=== PATIENT | male | born 1960 | race Caucasian/White ===

== ENCOUNTER 2016-10-16 08:00 | Emergency (ER) | payer BC ==
[2016-10-16] MEDS ORDERED: Zofran 4 MG/2 ML VIAL IV ONE (08:19)
[2016-10-16] MEDS ORDERED: MORPHINE SULFATE 4 MG INJ IV ONE (08:19)
--- NOTE | 2016-10-16 08:27 | ERPHSYRPT ---
- History of Present Illness Time Seen by Provider: 10/16/16 08:11 Source: patient Exam Limitations: no limitations Patient Subjective Stated Complaint: pt walked in resp easy, sin w/d ,chest clear abd soft, edema to left foot which he states is normal for ryan Triage Nursing Assessment: pt here for dizziness with movement, headache, and pain to left side of chest that her states is only with deep breath or cough Physician History: 56-year-old white male arrives with complaint of a headache frontal region associated with nausea woke patient up this morning at 7:00 he has had 3 episodes of this he states that they last about a minute a piece he also states that he has had pain in his left upper chest with breathing for one week He has no cough no shortness of breath he has had nausea he has no movement disorder or sensory loss no speech problems. Past medical history includes left knee pain, patient has chronic pain in his Achilles tendon Past surgical history includes a cyst removal on his left wrist Social history occasional alcohol use patient denies current tobacco use with minimal history in the past Patient states he has been having some pain in his right wrist ulnar aspect chronically for approximately 6 months worse with movement Timing/Duration: today, other (pain since 7:00 this morning intermittintly ( headache), pain left upper chest with breathing for 1 week) Severity: moderate Associated Symptoms: nausea, chest pain, headaches, other (dizziness this morning), No vomiting, No abdominal pain, No shortness of breath, No heartburn, No diaphoresis, No cough, No chills, No fever, No loss of appetite, No malaise, No rash, No syncope, No seizure, No weakness Allergies/Adverse Reactions: No Known Drug Allergies Allergy (Verified 10/16/16 08:12) Hx Tetanus, Diphtheria Vaccination/Date Given: Yes Hx Influenza Vaccination/Date Given: No Hx Pneumococcal Vaccination/Date Given: No Immunizations Up to Date: No - Review of Systems Constitutional: No Fever, No Chills Eyes: No Symptoms, No Discharge, No Eye Pain, No Eye Redness, No Itchy, No Photophobia, No Tearing, No Vision Changes, No Double Vision, No Foreign Body Sensation Ears, Nose, & Throat: No Symptoms, No Ear Pain, No Ear Discharge, No Hearing Changes, No Tinnitus, No Nose Pain, No Nose Congestion, No Nose Discharge, No Sinus Drainage, No Epistaxis, No Mouth Pain, No Mouth Swelling, No Loose Teeth, No Throat Pain, No Throat Swelling, No Hoarse, No Painful Swallowing, No Snoring , No Stridor Respiratory: Other (pain with breathing left upper chest for one week), No Cough , No Dyspnea Cardiac: Chest Pain (pain with breathing left upper chest for 1 week) Abdominal/Gastrointestinal: No Abdominal Pain, No Nausea, No Vomiting, No Diarrhea Genitourinary Symptoms: No Dysuria Musculoskeletal: Other (pain left wrist ulnar aspect anteriorly with movement for 6 months) Skin: No Rash Neurological: Dizziness, Headache, No Focal Weakness, No Gait Changes, No Paralysis, No Parasthesia, No Seizure, No Sensory Changes, No Speech Changes Psychological: No Symptoms Endocrine: No Symptoms All Other Systems: Reviewed and Negative - Past Medical History Pertinent Past Medical History: Yes Neurological History: Peripheral Neuropathy ENT History: No Pertinent History Cardiac History: No Pertinent History Respiratory History: No Pertinent History Endocrine Medical History: No Pertinent History Musculoskeletal History: No Pertinent History GI Medical History: No Pertinent History History: No Pertinent History Psycho-Social History: No Pertinent History Male Reproductive Disorders: No Pertinent History Other Medical History: LEFT KNEE PAIN, pleurisy - Past Surgical History Past Surgical History: Yes Neuro Surgical History: No Pertinent History Cardiac: No Pertinent History Respiratory: No Pertinent History Gastrointestinal: No Pertinent History Genitourinary: No Pertinent History Musculoskeletal: Other Male Surgical History: No Pertinent History Other Surgical History: CYST REMOVED FROM LEFT WRIST - Social History Smoking Status: Former smoker Exposure to second hand smoke: No Drug Use: none Patient Lives Alone: No - Nursing Vital Signs Nursing Vital Signs: Initial Vital Signs Temperature 98.2 F 10/16/16 08:02 Pulse Rate 74 10/16/16 08:02 Respiratory Rate 16 10/16/16 08:02 Blood Pressure 123/82 10/16/16 08:02 O2 Sat by Pulse Oximetry 94 L 10/16/16 08:02 Pain Scale Pain Intensity 1 - Physical Exam General Appearance: mild distress, alert Eye Exam: PERRL/EOMI, eyes nml inspection, other (fundi are unremarkable) Ears, Nose, Throat Exam: normal ENT inspection, TMs normal, pharynx normal, moist mucous membranes Neck Exam: normal inspection, non-tender, supple, full range of motion Respiratory Exam: normal breath sounds, lungs clear, No respiratory distress Cardiovascular Exam: regular rate/rhythm, normal heart sounds, normal peripheral pulses Gastrointestinal/Abdomen Exam: soft, normal bowel sounds, No tenderness, No mass Back Exam: normal inspection, normal range of motion, No CVA tenderness, No vertebral tenderness Extremity Exam: other (full range of motion all extremities Tinel sign negative Phalen sign negative pain with flexion left wrist at the base of hand ulnar aspect volar surface) Neurologic Exam: alert, oriented x 3, cooperative, materials handler II-XII nml as tested, normal mood/affect, nml cerebellar function, nml station & gait, sensation nml, other (patient alert, oriented 3, cranial nerves II through XII INTACT fisherman helper equal and symmetrical5/5, NORMAL FINGER TO NOSE, NO SENSORY DEFICITS, gcs=15), No motor deficits, No sensory deficit, No disoriented, No confusion, No agitation, No uncooperative, No intoxicated appearance, No depressed mood/affect , No motor weakness, No facial droop, No slurred speech, No aphasia, No dysarthria, No abnormal materials handler II-XII Skin Exam: normal color, warm, dry, No rash Lymphatic Exam: No adenopathy SpO2 Interpretation: normal (94%) SpO2: 94 Oxygen Delivery: Room Air - Course Nursing assessment & vital signs reviewed: Yes EKG Interpreted by Me: RATE (72 BPM), Sinus Rhythm, NORMAL AXIS, Other (EKG, sinus rhythm, 72 bpm, axis SI/QIII pattern, no acute ST or T wave changes essentially normal EKG) - Radiology Exams Chest X-ray Interpretation: Discussed w/ radiologist, Other (chest x-ray: Impression: Nonacute underinflated chest) - CT Exams Head CT Interpretation: Negative, Discussed w/radiologist Ordered Tests: Active Orders 24 hr Category Date Time Status EKG-ER Only STAT Care 10/16/16 08:19 Active IV Insertion STAT Care 10/16/16 08:19 Active CHEST 1 VIEW (PORTABLE) Stat Exams 10/16/16 08:19 Completed HEAD WITHOUT CONTRAST [CT] Stat Exams 10/16/16 08:21 Completed CBC W DIFF Stat Lab 10/16/16 08:20 Completed CMP Stat Lab 10/16/16 08:20 Completed D-DIMER QUANTITATION Stat Lab 10/16/16 08:20 Completed TROPONIN Q3H Lab 10/16/16 08:30 Completed TROPONIN Q3H Lab 10/16/16 11:30 Ordered TROPONIN Q3H Lab 10/16/16 14:30 Ordered TROPONIN Q3H Lab 10/16/16 17:30 Ordered TROPONIN Q3H Lab 10/16/16 20:30 Ordered Medication Summary Discontinued Medications Generic Name Dose Route Start Last Admin Trade Name Karolina PRN Reason Stop Dose Admin Aspirin 324 mg 10/16/16 09:07 10/16/16 09:11 Baby Aspirin 81 Mg Chew PO 10/16/16 09:08 324 mg STAT ONE Administration Aspirin Confirm 10/16/16 09:10 Baby Aspirin 81 Mg Chew Administered 10/16/16 09:11 Dose 324 mg .ROUTE .STK-MED ONE Morphine Sulfate 4 mg 10/16/16 08:19 10/16/16 08:52 Morphine Sulfate 4 Mg Inj IV 10/16/16 08:20 4 mg STAT ONE Administration Morphine Sulfate Confirm 10/16/16 08:33 Morphine Sulfate 4 Mg Inj Administered 10/16/16 08:34 Dose 4 mg .ROUTE .STK-MED ONE Ondansetron HCl 4 mg 10/16/16 08:19 10/16/16 08:53 Zofran 4 Mg/2 Ml Vial IV 10/16/16 08:20 4 mg STAT ONE Administration Ondansetron HCl Confirm 10/16/16 08:33 Zofran 4 Mg/2 Ml Vial Administered 10/16/16 08:34 Dose 4 mg .ROUTE .STK-MED ONE Lab/Rad Data: Laboratory Result Diagrams 10/16/16 08:20 10/16/16 08:20 Laboratory Results 10/16/16 10/16/16 10/16/16 Range/Units 08:30 08:20 08:20 WBC (4.0-10.5) K/mm3 RBC (4.1-5.6) M/mm3 Hgb (12.5-18.0) gm/dl Hct (42-50) % MCV (78-100) fl MCH (26-32) pg MCHC (32-36) g/dl RDW (11.5-14.0) % Plt Count (150-450) K/mm3 MPV (6-9.5) fl Gran % (36.0-66.0) % Lymphocytes % (24.0-44.0) % Monocytes % (0.0-12.0) % Eosinophils % (0.00-5.0) % Basophils % (0.0-0.4) % Basophils # (0-0.4) D-Dimer 411 (0-500) ng/mL Sodium 139 (136-145) mEq/L Potassium 4.2 (3.5-5.1) mEq/L Chloride 104 (98-107) mEq/L Carbon Dioxide 27.1 (21-32) mEq/L Anion Gap 12.2 (5-15) MEQ/L BUN 20 (9-20) mg/dL Creatinine 1.28 (0.55-1.30) mg/dl Estimated GFR > 60 ML/MIN Glucose 117 H (70-110) MG/DL Calcium 9.4 (8.5-10.1) mg/dL Total Bilirubin 0.40 (0.2-1.0) mg/dL AST 37 (15-37) U/L ALT 53 (12-78) U/L Alkaline Phosphatase 58 (46-116) U/L Troponin I < 0.017 (0.000-0.056) ng/ml Serum Total Protein 7.7 (6.4-8.2) gm/dL Albumin 3.6 (3.4-5.0) g/dL 10/16/16 Range/Units 08:20 WBC 7.7 (4.0-10.5) K/mm3 RBC 4.64 (4.1-5.6) M/mm3 Hgb 14.5 (12.5-18.0) gm/dl Hct 43.1 (42-50) % MCV 92.9 (78-100) fl MCH 31.3 (26-32) pg MCHC 33.6 (32-36) g/dl RDW 14.0 (11.5-14.0) % Plt Count 213 (150-450) K/mm3 MPV 10.1 H (6-9.5) fl Gran % 63.1 (36.0-66.0) % Lymphocytes % 23.3 L (24.0-44.0) % Monocytes % 10.8 (0.0-12.0) % Eosinophils % 2.3 (0.00-5.0) % Basophils % 0.5 (0.0-0.4) % Basophils # 0.04 (0-0.4) D-Dimer (0-500) ng/mL Sodium (136-145) mEq/L Potassium (3.5-5.1) mEq/L Chloride (98-107) mEq/L Carbon Dioxide (21-32) mEq/L Anion Gap (5-15) MEQ/L BUN (9-20) mg/dL Creatinine (0.55-1.30) mg/dl Estimated GFR ML/MIN Glucose (70-110) MG/DL Calcium (8.5-10.1) mg/dL Total Bilirubin (0.2-1.0) mg/dL AST (15-37) U/L ALT (12-78) U/L Alkaline Phosphatase (46-116) U/L Troponin I (0.000-0.056) ng/ml Serum Total Protein (6.4-8.2) gm/dL Albumin (3.4-5.0) g/dL - Progress Progress: improved Progress Note: 10/16/16 10:00 This is a 56-year-old white male he has been complaining of pain in the left upper chest worse with breathing symptoms for one week. He states this morning he awoke with complaint of frontal headache, nausea, dizziness this lasted approximately 1 minute and was recurring Patient arrives in the emergency room he is given morphine and Zofran for pain Head CT chest x-ray EKG all normal troponin within normal limits d-dimer within normal limits CBC chemistry essentially normal Patient with normal neurologic examination and essentially normal physical examination. Patient is feeling better after receiving morphine and Zofran he was also given aspirin 325 mg orally. Case is discussed with Dr. Kruse Will discharge patient diagnosis headache, dizziness, noncardiac chest pain. Will release patient will give patient a prescription for Antivert 25 mg orally 3 times a day as needed for dizziness. Patient to continue Tylenol every 4 hours or ibuprofen every 6 hours. As needed for pain. Patient to begin aspirin 162 mg orally daily. He is return home rest plenty of fluids, follow-up with Dr. Kruse, call today for appointment. He is return for acute distress or for severe symptoms.l - Departure Time of Disposition: 10:03 Departure Disposition: Home Clinical Impression: Dizziness, Non-cardiac chest pain Headache Qualifiers: Headache type: unspecified Headache chronicity pattern: acute headache Intractability: not intractable Qualified Code(s): R51 - Headache Condition: Fair Critical Care Time: No Referrals: MARY KRUSE [Primary Care Provider] - Instructions: Vertigo Additional Instructions: Return home. Plenty of fluids. Tylenol every 4 hours or ibuprofen every 6 hours as needed for pain. Antivert 25 mg orally 3 times a day as needed for dizziness. Aspirin 162 mg orally daily. Follow-up with Dr. Kruse, at his office at 1:30 pm tomorrow. Return for acute distress or for severe symptoms. Prescriptions: Meclizine HCl 25 mg [Antivert 25 mg] 25 mg PO TID PRN #20 tablet
[2016-10-16] MEDS ORDERED: MORPHINE SULFATE 4 MG INJ ONE (08:33)
[2016-10-16] MEDS ORDERED: Zofran 4 MG/2 ML VIAL ONE (08:33)
--- NOTE | 2016-10-16 08:55 | XRAY ---
Indication: Headache and dizziness. Multiple contiguous axial images obtained through the head without contrast. Comparison: None Normal appearing brain parenchyma, ventricles, and bony calvarium. Visualized paranasal sinuses and mastoid air cells are pneumatized and clear. Impression: Normal CT head without contrast exam. CT DI 69.11
--- NOTE | 2016-10-16 08:58 | XRAY ---
Indication: Pain with breathing. Comparison: April 12, 2014. Portable apical lordotic chest underinflated today and remains clear. Heart is not enlarged. Bony thorax intact again with mild degenerative changes. Impression: Nonacute underinflated chest.
[2016-10-16 08:59] LABS: BASOPHIL % 0.5 % (0.0-0.4); Eosinophil % 2.3 % (0.00-5.0); Granulocytes % 63.1 % (36.0-66.0); Lymphocytes % 23.3 % (24.0-44.0); Mean Cell Volume 92.9 fl (78-100); Mean Corpuscular Hemoglobin 31.3 pg (26-32); Mean Platelet Volume 10.1 fl (6-9.5); Monocytes % 10.8 % (0.0-12.0); Platelet Count 213 K/mm3 (150-450); Red Blood Count 4.64 M/mm3 (4.1-5.6); White Blood Count 7.7 K/mm3 (4.0-10.5)
[2016-10-16] MEDS ORDERED: BABY ASPIRIN 81 MG CHEW PO ONE (09:07)
[2016-10-16] MEDS ORDERED: BABY ASPIRIN 81 MG CHEW ONE (09:10)
[2016-10-16 09:14] LABS: ALBUMIN 3.6 g/dL (3.4-5.0); ALKALINE PHOSPHATASE 58 U/L (46-116); ANION GAP 12.2 MEQ/L (5-15); BLOOD UREA NITROGEN 20 mg/dL (9-20); CHLORIDE 104 mEq/L (98-107); Carbon Dioxide 27.1 mEq/L (21-32); Glucose 117 MG/DL (70-110); Potassium 4.2 mEq/L (3.5-5.1); SGOT/AST 37 U/L (15-37); SGPT/ALT 53 U/L (12-78); SODIUM 139 mEq/L (136-145); Total Protein 7.7 gm/dL (6.4-8.2)
[2016-10-16 10:49] VITALS: BP 160/70; PULSE 78; O2SAT 98
== END 2016-10-16 10:26 | disposition home or self-care (01) ==
LOC: ED 08:00
DX: R51 Headache (principal); R42 Dizziness and giddiness; R07.89 Other chest pain; R60.9 Edema, unspecified; R11.0 Nausea; M25.531 Pain in right wrist
CPT/HCPCS: 36000; 36415; 70450; 71010; 80053; 84484; 85025; 85379; 93005; 96360; 96374; 96375; 99284; J2270; J2405; A9270-GY

== ENCOUNTER 2021-05-03 20:04 | Emergency (ER) | payer BC, OTHER ==
[2021-05-03] MEDS ORDERED: Sodium Chloride 0.9% 1000 ML 1,000 ML IV STA (21:27)
[2021-05-03] MEDS ORDERED: TYLENOL 325 MG PO STA (21:27)
[2021-05-03] MEDS ORDERED: TORAdol 30 mg Injection IV ONE (21:29)
[2021-05-03] MEDS ORDERED: Sodium Chloride 0.9% 1000 ML 1,000 ML ONE (21:30)
[2021-05-03] MEDS ORDERED: TORAdol 30 mg Injection ONE (21:30)
[2021-05-03] MEDS ORDERED: TYLENOL 325 MG ONE (21:30)
[2021-05-03 21:39] LABS: Absolute Neutrophil Ct (ANC) 8.43 (1.4-6.9); Basophil (Absolute #) 0.02 (0-0.4); Eosinophil % 0.4 % (0.00-5.0); Eosinophil (Absolute #) 0.04 (0-0.5); Hematocrit 46.4 % (42-50); Hemoglobin 15.6 gm/dl (12.5-18.0); Lymphocyte (Absolute #) 0.46 (1.0-4.6); Lymphocytes % 4.9 % (24.0-44.0); Mean Cell Volume 90.8 fl (78-100); Mean Corpuscular Hemoglobin 30.5 pg (26-32); Mean Corpuscular Hgb Concent. 33.6 g/dl (32-36); Mean Platelet Volume 10.5 fl (7.5-11.0); Monocytes % 5.3 % (0.0-12.0); Neutrophil % 89.2 % (36.0-66.0); Platelet Count 214 K/mm3 (150-450); Red Blood Count 5.11 M/mm3 (4.1-5.6); Red Cell Distribution Width 13.4 % (11.5-14.0); White Blood Count 9.5 K/mm3 (4.0-10.5)
[2021-05-03 21:50] LABS: ALBUMIN 4.1 g/dL (3.5-5.0); ALKALINE PHOSPHATASE 58 U/L (38-126); ANION GAP 15.8 MEQ/L (5-15); BLOOD UREA NITROGEN 20 mg/dL (9-20); CHLORIDE 102 mmol/L (98-107); Calcium 9.1 mg/dL (8.4-10.2); Carbon Dioxide 22 mmol/L (22-30); Creatinine 1 1.01 mg/dL (0.66-1.25); EST GLOMERULAR FILTRATION RATE > 60.0 ML/MIN; Glucose 123 mg/dL (74-106); Potassium 4.2 mmol/L (3.5-5.1); SGOT/AST 38 U/L (17-59); SGPT/ALT 30 U/L (0-50); SODIUM 136 mmol/L (137-145); Total Protein 7.6 g/dL (6.3-8.2)
[2021-05-03 22:06] LABS: Appearance CLEAR (CLEAR); Bilirubin NEGATIVE (NEGATIVE); Blood SMALL Ery/ul (0-5); Glucose NEGATIVE (NEGATIVE); Ketones NEGATIVE (NEGATIVE); Leukocyte Esterase NEGATIVE (NEGATIVE); Mucus SLIGHT /HPF (NEGATIVE); Nitrite NEGATIVE (NEGATIVE); Protein,Urine Dip NEGATIVE (Negative); RBC 0-2 /HPF (0-2); Specific Gravity 1.027 (1.005-1.025); Urobilinogen 2 mg/dL (0-1); WBC 0-2 /HPF (0-5)
[2021-05-03 22:15] LABS: INFLUENZA A NEGATIVE (NEGATIVE); INFLUENZA B NEGATIVE (NEGATIVE)
[2021-05-03 22:16] LABS: COVID AG -BINAX NOW RAPID TEST NEGATIVE (NEGATIVE)
[2021-05-03] MEDS ORDERED: Compazine 10 MG/2 ML IV ONE (22:48)
[2021-05-03] MEDS ORDERED: Compazine 10 MG/2 ML ONE (22:50)
[2021-05-03 22:54] LABS: Slide Review 1 YES
--- NOTE | 2021-05-03 22:54 | ERPHSYRPT ---
- History of Present Illness Time Seen by Provider: 05/03/21 20:59 Source: patient Exam Limitations: no limitations Patient Subjective Stated Complaint: pt states "The fever and body aches began today." Triage Nursing Assessment: pt came into the er via wheelchair; pt is axo x4; c/o fever; pt states 7/10 generalized pain; pt states generalized body aches; temp of 100.2 oral; mucus membranes pink and moist; clear lung sounds in all lobes; c/o diarrhea in the a.m; pt denies diarrhea since this morning; pt denies N/V; active bowel sounds in all quads; pt c/o chills; pt states he took tylenol at 1430 and excedrin at 1930; hypertensive; pt states that temp at home was 102.4 Physician History: Patient is a 61-year-old male presents to emergency department for evaluation of fever body aches and headache. Symptoms started today. Body aches rated 7 out of 10. No trauma. Currently afebrile. No neck pain. No photophobia. No meningeal signs. Symptoms are mild to moderate in intensity. No specific worsening improving factors. Patient voices no other complaints or concerns at this time. Patient states he had a negative COVID test 2 weeks ago. Timing/Duration: today Severity: moderate Modifying Factors: Improves With: nothing Associated Symptoms: denies symptoms, No fever, No syncope, No seizure, No wea kness Allergies/Adverse Reactions: No Known Drug Allergies Allergy (Verified 05/03/21 20:54) Home Medications: No Reportable Medications [No Reported Medications] 05/03/21 [History] Hx Tetanus, Diphtheria Vaccination/Date Given: No Hx Influenza Vaccination/Date Given: No Hx Pneumococcal Vaccination/Date Given: No Travel Risk - International Travel Have you traveled outside of the country in past 3 weeks: No - Coronavirus Screening Are you exhibiting any of the following symptoms?: Yes Symptoms: Fever, Vomiting/Diarrhea, Headaches/Body Aches/Fatigue Close contact with a COVID-19 positive Pt in past 14-21 Days: No - Vaccine Status Have you recieved a Covid-19 vaccination: Yes Medical Economics Consultant: Moderna - Vaccination Dates Date of 2cond Vaccination (if applicable): 07/07 - Review of Systems Constitutional: No Symptoms, No Fever, No Chills Eyes: No Symptoms Ears, Nose, & Throat: No Symptoms Respiratory: No Symptoms, No Cough, No Dyspnea Cardiac: No Symptoms, No Chest Pain, No Edema, No Syncope Abdominal/Gastrointestinal: No Symptoms, No Abdominal Pain, No Nausea, No Vomiting, No Diarrhea Genitourinary Symptoms: No Symptoms, No Dysuria Musculoskeletal: No Symptoms, No Back Pain, No Neck Pain Skin: No Symptoms, No Rash Neurological: No Symptoms, No Dizziness, No Focal Weakness, No Sensory Changes Psychological: No Symptoms Endocrine: No Symptoms Hematologic/Lymphatic: No Symptoms Immunological/Allergic: No Symptoms All Other Systems: Reviewed and Negative - Past Medical History Pertinent Past Medical History: Yes Neurological History: Peripheral Neuropathy ENT History: No Pertinent History Cardiac History: No Pertinent History Respiratory History: No Pertinent History Endocrine Medical History: No Pertinent History Musculoskeletal History: No Pertinent History GI Medical History: No Pertinent History History: No Pertinent History Psycho-Social History: No Pertinent History Male Reproductive Disorders: No Pertinent History Other Medical History: LEFT KNEE PAIN, pleurisy - Past Surgical History Past Surgical History: Yes Neuro Surgical History: No Pertinent History Cardiac: No Pertinent History Respiratory: No Pertinent History Gastrointestinal: No Pertinent History Genitourinary: No Pertinent History Musculoskeletal: Other Male Surgical History: No Pertinent History Other Surgical History: CYST REMOVED FROM LEFT WRIST - Social History Smoking Status: Former smoker Exposure to second hand smoke: No Drug Use: none Patient Lives Alone: No - Nursing Vital Signs Nursing Vital Signs: Initial Vital Signs Temperature 100.2 F 05/03/21 20:55 Pulse Rate 96 H 05/03/21 20:55 Respiratory Rate 18 05/03/21 20:55 Blood Pressure 165/97 05/03/21 20:55 O2 Sat by Pulse Oximetry 95 05/03/21 20:55 Pain Scale Pain Intensity 5 - Physical Exam General Appearance: no apparent distress, alert Eye Exam: PERRL/EOMI, eyes nml inspection Ears, Nose, Throat Exam: normal ENT inspection, TMs normal, pharynx normal, moist mucous membranes Neck Exam: normal inspection, non-tender, supple, full range of motion Respiratory Exam: normal breath sounds, lungs clear, airway intact, No respiratory distress Cardiovascular Exam: regular rate/rhythm, normal heart sounds, normal peripheral pulses Gastrointestinal/Abdomen Exam: soft, normal bowel sounds, No tenderness, No mass Back Exam: normal inspection, normal range of motion, No CVA tenderness, No vertebral tenderness Extremity Exam: normal inspection, normal range of motion, pelvis stable Neurologic Exam: alert, oriented x 3, cooperative, normal mood/affect, sensation nml, No motor deficits Skin Exam: normal color, warm, dry, No rash Lymphatic Exam: No adenopathy SpO2 Interpretation: normal SpO2: 94 O2 Delivery: Room Air - Course Nursing assessment & vital signs reviewed: Yes Ordered Tests: Active Orders 24 hr Category Date Time Status IV Insertion STAT Care 05/03/21 21:27 Active Pulse Oximetry (ED) STAT Care 05/03/21 21:27 Active BLOOD CULTURE Stat Lab 05/03/21 21:50 Received CBC W DIFF Stat Lab 05/03/21 21:35 Completed CMP Stat Lab 05/03/21 21:35 Completed COVID AG-BINAX NOW RAPID TEST Stat Lab 05/03/21 21:50 Completed INFLUENZA A+B SANTHOSH Stat Lab 05/03/21 21:50 Completed UA W/RFX UR CULTURE Stat Lab 05/03/21 21:35 Completed Medication Summary Generic Name Dose Route Start Last Admin Trade Name Freq PRN Reason Stop Dose Admin Prochlorperazine Edisylate 10 mg 05/03/21 22:48 Prochlorperazine Edisylate 10 Mg/2 Ml Vial IV 05/03/21 22:49 STAT ONE Discontinued Medications Generic Name Dose Route Start Last Admin Trade Name Freq PRN Reason Stop Dose Admin Acetaminophen 975 mg 05/03/21 21:27 05/03/21 21:31 Acetaminophen 325 Mg Tablet PO 05/03/21 21:28 975 mg STAT STA Administration Acetaminophen Confirm 05/03/21 21:30 Acetaminophen 325 Mg Tablet Administered 05/03/21 21:31 Dose 975 mg .ROUTE .STK-MED ONE Sodium Chloride 1,000 mls @ 999 mls/hr 05/03/21 21:27 05/03/21 21:31 Sodium Chloride 0.9% 1000 Ml IV 05/03/21 22:27 999 mls/hr .Q1H1M STA Administration Sodium Chloride Confirm 05/03/21 21:30 Sodium Chloride 0.9% 1000 Ml Administered 05/03/21 21:31 Dose 1,000 mls @ ud .ROUTE .STK-MED ONE Ketorolac Tromethamine 30 mg 05/03/21 21:29 05/03/21 21:31 Ketorolac Tromethamine 30 Mg/Ml Inj IV 05/03/21 21:30 30 mg STAT ONE Administration Ketorolac Tromethamine Confirm 05/03/21 21:30 Ketorolac Tromethamine 30 Mg/Ml Inj Administered 05/03/21 21:31 Dose 30 mg .ROUTE .STK-MED ONE Lab/Rad Data: Laboratory Result Diagrams 05/03/21 21:35 05/03/21 21:35 Laboratory Results 05/03/21 05/03/21 05/03/21 Range/Units 21:50 21:50 21:35 WBC (4.0-10.5) K/mm3 RBC (4.1-5.6) M/mm3 Hgb (12.5-18.0) gm/dl Hct (42-50) % MCV (78-100) fl MCH (26-32) pg MCHC (32-36) g/dl RDW (11.5-14.0) % Plt Count (150-450) K/mm3 MPV (7.5-11.0) fl Gran % (36.0-66.0) % Eos # (Auto) (0-0.5) Absolute Lymphs (auto) (1.0-4.6) Absolute Monos (auto) (0.0-1.3) Lymphocytes % (24.0-44.0) % Monocytes % (0.0-12.0) % Eosinophils % (0.00-5.0) % Basophils % (0.0-0.4) % Absolute Granulocytes (1.4-6.9) Basophils # (0-0.4) Sodium (137-145) mmol/L Potassium (3.5-5.1) mmol/L Chloride (98-107) mmol/L Carbon Dioxide (22-30) mmol/L Anion Gap (5-15) MEQ/L BUN (9-20) mg/dL Creatinine (0.66-1.25) mg/dL Estimated GFR ML/MIN Glucose (74-106) mg/dL Calcium (8.4-10.2) mg/dL Total Bilirubin (0.2-1.3) mg/dL AST (17-59) U/L ALT (0-50) U/L Alkaline Phosphatase (38-126) U/L Serum Total Protein (6.3-8.2) g/dL Albumin (3.5-5.0) g/dL Urine Color YELLOW (YELLOW) Urine Appearance CLEAR (CLEAR) Urine pH 5.0 (5-6) Ur Specific [place] 1.027 (1.005-1.025) Urine Protein NEGATIVE (Negative) Urine Ketones NEGATIVE (NEGATIVE) Urine Blood SMALL (0-5) Pradip/ul Urine Nitrite NEGATIVE (NEGATIVE) Urine Bilirubin NEGATIVE (NEGATIVE) Urine Urobilinogen 2 (0-1) mg/dL Ur Leukocyte Esterase NEGATIVE (NEGATIVE) Urine WBC (Auto) 0-2 (0-5) /HPF Urine RBC (Auto) 0-2 (0-2) /HPF U Epithel Cells (Auto) NONE (FEW) /HPF Urine Bacteria (Auto) NONE (NEGATIVE) /HPF Urine Mucus (Auto) SLIGHT (NEGATIVE) /HPF Urine Culture Reflexed NO (NO) Urine Glucose NEGATIVE (NEGATIVE) mg/dL Influenza Type A Ag NEGATIVE (NEGATIVE) Influenza Type B Ag NEGATIVE (NEGATIVE) SARS-CoV-2 Ag (Rapid) NEGATIVE (NEGATIVE) 05/03/21 05/03/21 Range/Units 21:35 21:35 WBC 9.5 (4.0-10.5) K/mm3 RBC 5.11 (4.1-5.6) M/mm3 Hgb 15.6 (12.5-18.0) gm/dl Hct 46.4 (42-50) % MCV 90.8 (78-100) fl MCH 30.5 (26-32) pg MCHC 33.6 (32-36) g/dl RDW 13.4 (11.5-14.0) % Plt Count 214 (150-450) K/mm3 MPV 10.5 (7.5-11.0) fl Gran % 89.2 H (36.0-66.0) % Eos # (Auto) 0.04 (0-0.5) Absolute Lymphs (auto) 0.46 L (1.0-4.6) Absolute Monos (auto) 0.50 (0.0-1.3) Lymphocytes % 4.9 L (24.0-44.0) % Monocytes % 5.3 (0.0-12.0) % Eosinophils % 0.4 (0.00-5.0) % Basophils % 0.2 (0.0-0.4) % Absolute Granulocytes 8.43 H (1.4-6.9) Basophils # 0.02 (0-0.4) Sodium 136 L (137-145) mmol/L Potassium 4.2 (3.5-5.1) mmol/L Chloride 102 (98-107) mmol/L Carbon Dioxide 22 (22-30) mmol/L Anion Gap 15.8 H (5-15) MEQ/L BUN 20 (9-20) mg/dL Creatinine 1.01 (0.66-1.25) mg/dL Estimated GFR > 60.0 ML/MIN Glucose 123 H (74-106) mg/dL Calcium 9.1 (8.4-10.2) mg/dL Total Bilirubin 0.70 (0.2-1.3) mg/dL AST 38 (17-59) U/L ALT 30 (0-50) U/L Alkaline Phosphatase 58 (38-126) U/L Serum Total Protein 7.6 (6.3-8.2) g/dL Albumin 4.1 (3.5-5.0) g/dL Urine Color (YELLOW) Urine Appearance (CLEAR) Urine pH (5-6) Ur Specific [place] (1.005-1.025) Urine Protein (Negative) Urine Ketones (NEGATIVE) Urine Blood (0-5) Pradip/ul Urine Nitrite (NEGATIVE) Urine Bilirubin (NEGATIVE) Urine Urobilinogen (0-1) mg/dL Ur Leukocyte Esterase (NEGATIVE) Urine WBC (Auto) (0-5) /HPF Urine RBC (Auto) (0-2) /HPF U Epithel Cells (Auto) (FEW) /HPF Urine Bacteria (Auto) (NEGATIVE) /HPF Urine Mucus (Auto) (NEGATIVE) /HPF Urine Culture Reflexed (NO) Urine Glucose (NEGATIVE) mg/dL Influenza Type A Ag (NEGATIVE) Influenza Type B Ag (NEGATIVE) SARS-CoV-2 Ag (Rapid) (NEGATIVE) - Progress Progress: improved Progress Note: Patient reassessed. He feels much better. Headache essentially resolved. Body aches improved. Patient states he is ready for discharge. Laboratory work-up essentially nonremarkable. UA negative for UTI. Covid influenza both negative. Patient presents with a viral syndrome. Symptomatic care via [id number] medications as needed. Will discharge home. Patient agrees to follow-up with his primary care doctor within 48 hours for reevaluation. Portions of this note were created with voice recognition technology. There may be grammatical, spelling, punctuation or sound alike errors 05/03/21 23:02 Counseled pt/family regarding: diagnosis, need for follow-up, rad results - Departure Departure Disposition: Home Clinical Impression: Viral syndrome, Myalgia, Headache, Microscopic hematuria Condition: Stable Critical Care Time: No Referrals: MARY ZIMMERMAN [Primary Care Provider] - Follow up/PCP as directed Additional Instructions: Discharge/Care Plan LOKESH RYAN was seen on 05/03/21 in the Emergency Room. The patient was counseled regarding Diagnosis,Lab results, Imaging studies, need for follow up and when to return to the Emergency Room. Prescriptions given: Discharge Note I have spoken with the patient and/or caregivers. I have explained the patient's condition, diagnosis and treatment plan based on the information available to me at this time. I have answered the patient's and/or caregiver's questions and addressed any concerns. The patient and/or caregivers have as good understanding of the patient's diagnosis, condition and treatment plan as can be expected at this point. The vital signs have been stable. The patient's condition is stable and appropriate for discharge from the emergency department. The patient will pursue further outpatient evaluation with the primary care physician or other designated or consulting physician as outlined in the discharge instructions. The patient and/or caregivers are agreeable to this plan of care and follow-up instructions have been explained in detail. The patient and/or caregivers have received these instruction. The patient/and or caregivers are aware that any significant change in condition or worsening of symptoms should prompt an immediate return to this or the closest emergency department or call 911.
[2021-05-03 23:08] VITALS: BP 117/77; PULSE 70; O2SAT 95
== END 2021-05-03 23:14 | disposition home or self-care (01) ==
LOC: ED 20:04
DX: B34.9 Viral infection, unspecified (principal); M79.10 Myalgia, unspecified site; R51.9 Headache, unspecified; R31.29 Other microscopic hematuria; R50.9 Fever, unspecified
CPT/HCPCS: 36000; 36415; 80053; 81001; 85025; 87040; 87400; 94760; 96360; 96374; 96375; 99000; 99284; J1885; A9270-GY

== ENCOUNTER 2021-12-02 15:48 | Emergency (ER) | payer BC ==
--- NOTE | 2021-12-02 15:54 | ERPHSYRPT ---
- History of Present Illness Time Seen by Provider: 12/02/21 15:54 Source: patient Exam Limitations: no limitations Physician History: This is an obese 61-year-old white male who was referred to us by [facility] for further evaluation and management of his left side abdominal pain. His pain began last evening at 10 PM. He has had no vomiting and no diarrhea symptoms. Patient denies shortness of breath and he denies chest pain. Patient has no history abdominal surgeries. Patient has no history of diverticulitis. His has irritable bowel syndrome and she did provide him with some dicyclomine which seemed to intermittently help. Patient's pain is in the left lower quadrant and is very sharp and localized. Timing/Duration: yesterday Severity: moderate Associated Symptoms: abdominal pain, No nausea, No vomiting, No shortness of breath, No chest pain, No fever Allergies/Adverse Reactions: No Known Drug Allergies Allergy (Verified 12/02/21 16:02) Hx Tetanus, Diphtheria Vaccination/Date Given: No Hx Influenza Vaccination/Date Given: No Hx Pneumococcal Vaccination/Date Given: No Travel Risk - International Travel Have you traveled outside of the country in past 3 weeks: No - Coronavirus Screening Are you exhibiting any of the following symptoms?: No Close contact with a COVID-19 positive Pt in past 14-21 Days: No - Vaccine Status Have you recieved a Covid-19 vaccination: Yes Enterprise Resource Planning Consultant: Moderna - Vaccination Dates Date of 2cond Vaccination (if applicable): 07/07 - Review of Systems Constitutional: No Symptoms Eyes: No Symptoms Ears, Nose, & Throat: No Symptoms Respiratory: No Symptoms Cardiac: No Symptoms Abdominal/Gastrointestinal: Abdominal Pain, No Nausea, No Vomiting, No Diarrhea, No Constipation Genitourinary Symptoms: No Symptoms Musculoskeletal: No Symptoms Skin: No Symptoms Neurological: No Symptoms Psychological: No Symptoms Endocrine: No Symptoms Hematologic/Lymphatic: No Symptoms Immunological/Allergic: No Symptoms All Other Systems: Reviewed and Negative - Past Medical History Pertinent Past Medical History: Yes Neurological History: Peripheral Neuropathy ENT History: No Pertinent History Cardiac History: No Pertinent History Respiratory History: No Pertinent History Endocrine Medical History: No Pertinent History Musculoskeletal History: No Pertinent History GI Medical History: No Pertinent History History: No Pertinent History Psycho-Social History: No Pertinent History Male Reproductive Disorders: No Pertinent History Other Medical History: LEFT KNEE PAIN, pleurisy - Past Surgical History Past Surgical History: Yes Neuro Surgical History: No Pertinent History Cardiac: No Pertinent History Respiratory: No Pertinent History Gastrointestinal: No Pertinent History Genitourinary: No Pertinent History Musculoskeletal: Other Male Surgical History: No Pertinent History Other Surgical History: CYST REMOVED FROM LEFT WRIST - Social History Smoking Status: Former smoker Exposure to second hand smoke: No Drug Use: none Patient Lives Alone: No - Nursing Vital Signs Nursing Vital Signs: Initial Vital Signs Temperature 98.1 F 12/02/21 15:58 Pulse Rate 70 12/02/21 15:58 Respiratory Rate 18 12/02/21 15:58 Blood Pressure 148/78 12/02/21 15:58 O2 Sat by Pulse Oximetry 97 12/02/21 15:58 Pain Scale Pain Intensity 6 - Physical Exam General Appearance: no apparent distress, alert, anxiety, obese Eye Exam: PERRL/EOMI, eyes nml inspection Ears, Nose, Throat Exam: normal ENT inspection, moist mucous membranes Neck Exam: normal inspection, non-tender, supple, full range of motion Respiratory Exam: normal breath sounds, lungs clear, airway intact, No chest tenderness, No respiratory distress Cardiovascular Exam: regular rate/rhythm, normal heart sounds, normal peripheral pulses Gastrointestinal/Abdomen Exam: soft, normal bowel sounds, tenderness (Left mid to lower abdomen), guarding (Left mid to lower abdomen with palpation), No rebound Rectal Exam: not done Back Exam: normal inspection, normal range of motion, No CVA tenderness, No vertebral tenderness Extremity Exam: normal inspection, normal range of motion, pelvis stable Neurologic Exam: alert, oriented x 3, cooperative, patient financial rep II-XII nml as tested, no rmal mood/affect, nml cerebellar function, nml station & gait, sensation nml Skin Exam: normal color, warm, dry Lymphatic Exam: No adenopathy SpO2 Interpretation: normal - Course Nursing assessment & vital signs reviewed: Yes Ordered Tests: Active Orders 24 hr Category Date Time Status IV Insertion STAT Care 12/02/21 16:32 Completed ABDOMEN AND PELVIS W/0 CONTRAS [CT] Stat Exams 12/02/21 17:31 Completed AMYLASE Stat Lab 12/02/21 16:40 Completed CBC W DIFF Stat Lab 12/02/21 16:40 Completed CMP Stat Lab 12/02/21 16:40 Completed LIPASE Stat Lab 12/02/21 16:40 Completed Lactic Acid Stat Lab 12/02/21 16:32 Completed UA W/RFX CULTURE Stat Lab 12/02/21 Completed Medication Summary Discontinued Medications Generic Name Dose Route Start Last Admin Trade Name Karolina PRLisa Reason Stop Dose Admin Hydromorphone HCl 1 mg 12/02/21 16:32 12/02/21 17:03 Hydromorphone 1 Mg/1ml Inj 1 Mg/Ml Syringe IV 12/02/21 16:33 1 mg STAT ONE Administration Hydromorphone HCl Confirm 12/02/21 17:02 Hydromorphone 1 Mg/1ml Inj 1 Mg/Ml Syringe Administered 12/02/21 17:03 Dose 1 mg .ROUTE .STK-MED ONE Sodium Chloride 1,000 mls @ 999 mls/hr 12/02/21 16:32 12/02/21 18:11 Sodium Chloride 0.9% 1000 Ml IV 12/02/21 17:32 Infused .Q1H1M STA Infusion Sodium Chloride Confirm 12/02/21 17:02 Sodium Chloride 0.9% 1000 Ml Administered 12/02/21 17:03 Dose 1,000 mls @ ud .ROUTE .STK-MED ONE Ketorolac Tromethamine 30 mg 12/02/21 18:22 Ketorolac Tromethamine 30 Mg/Ml Inj IV 12/02/21 18:23 STAT ONE Ondansetron HCl 4 mg 12/02/21 16:32 12/02/21 17:03 Ondansetron Hcl 4 Mg/2 Ml Vial IV 12/02/21 16:33 4 mg STAT ONE Administration Ondansetron HCl Confirm 12/02/21 17:02 Ondansetron Hcl 4 Mg/2 Ml Vial Administered 12/02/21 17:03 Dose 4 mg .ROUTE .STK-MED ONE Tamsulosin HCl 0.4 mg 12/02/21 18:22 Tamsulosin Hcl 0.4 Mg Cap PO 12/02/21 18:23 STAT ONE Lab/Rad Data: Laboratory Result Diagrams 12/02/21 16:40 12/02/21 16:40 Laboratory Results 12/02/21 12/02/21 12/02/21 Range/Units Unknown 16:40 16:40 WBC 10.1 (4.0-10.5) x10^3/uL RBC 4.71 (4.1-5.6) x10^6/uL Hgb 14.4 (12.5-18.0) g/dL Hct 43.3 (42-50) % MCV 91.9 (78-100) fL MCH 30.6 (26-32) pg MCHC 33.3 (32-36) g/dL RDW 13.1 (11.5-14.0) % Plt Count 230 (150-450) x10^3/uL MPV 9.8 (7.5-11.0) fL Gran % 69.6 H (36.0-66.0) % Immature Gran % (Auto) 0.5 H (0.00-0.4) % Nucleat RBC Rel Count 0.0 (0.00-0.1) % Eos # (Auto) 0.10 (0-0.5) x10^3/uL Immature Gran # (Auto) 0.05 H (0.00-0.03) x10^3u/L Absolute Lymphs (auto) 1.77 (1.0-4.6) x10^3/uL Absolute Monos (auto) 1.11 (0.0-1.3) x10^3/uL Absolute Nucleated RBC 0.00 (0.00-0.01) x10^3u/L Lymphocytes % 17.6 L (24.0-44.0) % Monocytes % 11.0 (0.0-12.0) % Eosinophils % 1.0 (0.00-5.0) % Basophils % 0.3 (0.0-0.4) % Absolute Granulocytes 7.01 H (1.4-6.9) x10^3/uL Basophils # 0.03 (0-0.4) x10^3/uL Sodium 140 (137-145) mmol/L Potassium 3.9 (3.5-5.1) mmol/L Chloride 104 (98-107) mmol/L Carbon Dioxide 29 (22-30) mmol/L Anion Gap 11.1 (5-15) MEQ/L BUN 18 (9-20) mg/dL Creatinine 1.19 (0.66-1.25) mg/dL Estimated GFR > 60.0 ML/MIN Glucose 102 (74-106) mg/dL Lactic Acid (0.4-2.0) Calcium 9.1 (8.4-10.2) mg/dL Total Bilirubin 0.50 (0.2-1.3) mg/dL AST 30 (17-59) U/L ALT 27 (0-50) U/L Alkaline Phosphatase 63 (38-126) U/L Serum Total Protein 7.6 (6.3-8.2) g/dL Albumin 4.2 (3.5-5.0) g/dL Amylase 75 (30-110) U/L Lipase 119 (23-300) U/L Urinalys Dipstick Clnc MAIN LAB Urine Color YELLOW (YELLOW) Urine Appearance CLEAR (CLEAR) Urine pH 6.0 (5-6) Ur Specific [place] 1.025 (1.005-1.025) POC Urine Protein Conf NEGATIVE (Negative) Urine Ketones NEGATIVE (NEGATIVE) Urine Nitrite NEGATIVE (NEGATIVE) Urine Bilirubin NEGATIVE (NEGATIVE) Urine Urobilinogen 1 (0-1) mg/dL Urine Leukocytes NEGATIVE (NEGATIVE) Urine WBC (Auto) 0-2 (0-5) /HPF Urine RBC (Auto) 3-5 (0-2) /HPF U Epithel Cells (Auto) NONE (FEW) /HPF Urine Bacteria (Auto) NONE (NEGATIVE) /HPF Urine RBC SMALL (0-5) Pradip/ul Urine Mucus (Auto) SLIGHT (NEGATIVE) /HPF Ur Culture Indicated? ORDERED SEPARATELY Urine Glucose NEGATIVE (NEGATIVE) mg/dL 12/02/21 Range/Units 16:32 WBC (4.0-10.5) x10^3/uL RBC (4.1-5.6) x10^6/uL Hgb (12.5-18.0) g/dL Hct (42-50) % MCV (78-100) fL MCH (26-32) pg MCHC (32-36) g/dL RDW (11.5-14.0) % Plt Count (150-450) x10^3/uL MPV (7.5-11.0) fL Gran % (36.0-66.0) % Immature Gran % (Auto) (0.00-0.4) % Nucleat RBC Rel Count (0.00-0.1) % Eos # (Auto) (0-0.5) x10^3/uL Immature Gran # (Auto) (0.00-0.03) x10^3u/L Absolute Lymphs (auto) (1.0-4.6) x10^3/uL Absolute Monos (auto) (0.0-1.3) x10^3/uL Absolute Nucleated RBC (0.00-0.01) x10^3u/L Lymphocytes % (24.0-44.0) % Monocytes % (0.0-12.0) % Eosinophils % (0.00-5.0) % Basophils % (0.0-0.4) % Absolute Granulocytes (1.4-6.9) x10^3/uL Basophils # (0-0.4) x10^3/uL Sodium (137-145) mmol/L Potassium (3.5-5.1) mmol/L Chloride (98-107) mmol/L Carbon Dioxide (22-30) mmol/L Anion Gap (5-15) MEQ/L BUN (9-20) mg/dL Creatinine (0.66-1.25) mg/dL Estimated GFR ML/MIN Glucose (74-106) mg/dL Lactic Acid 1.4 (0.4-2.0) Calcium (8.4-10.2) mg/dL Total Bilirubin (0.2-1.3) mg/dL AST (17-59) U/L ALT (0-50) U/L Alkaline Phosphatase (38-126) U/L Serum Total Protein (6.3-8.2) g/dL Albumin (3.5-5.0) g/dL Amylase (30-110) U/L Lipase (23-300) U/L Urinalys Dipstick Clnc Urine Color (YELLOW) Urine Appearance (CLEAR) Urine pH (5-6) Ur Specific [place] (1.005-1.025) POC Urine Protein Conf (Negative) Urine Ketones (NEGATIVE) Urine Nitrite (NEGATIVE) Urine Bilirubin (NEGATIVE) Urine Urobilinogen (0-1) mg/dL Urine Leukocytes (NEGATIVE) Urine WBC (Auto) (0-5) /HPF Urine RBC (Auto) (0-2) /HPF U Epithel Cells (Auto) (FEW) /HPF Urine Bacteria (Auto) (NEGATIVE) /HPF Urine RBC (0-5) Pradip/ul Urine Mucus (Auto) (NEGATIVE) /HPF Ur Culture Indicated? Urine Glucose (NEGATIVE) mg/dL - Progress Progress: improved, pain not gone completely, re-examined Progress Note: 12/02/21 18:23 CAT scan of the abdomen pelvis without contrast shows a 5 to 6 mm left ureteral calculus with mild prominence of the proximal ureter on the left. There is also mild left hydronephrosis present. Counseled pt/family regarding: lab results, diagnosis, need for follow-up, rad results - Departure Departure Disposition: Home Clinical Impression: Left ureteral calculus Condition: Stable Critical Care Time: No Referrals: MARY ZIMMERMAN [Primary Care Provider] - Follow up/PCP as directed Additional Instructions: Drink plenty of fluids. Take ibuprofen 600 mg orally with food 3 times a day for the next 4 days. Take other medication as prescribed. Follow-up with urologist on 12/05/2021 if symptoms persist. Prescriptions: Hydrocodone/APAP 5/325 [[place] 5/325 mg] 1 each PO Q8H PRN PRN #6 tablet MDD 3 PRN Reason: Pain Tamsulosin HCl 0.4 mg [Flomax 0.4 MG] 0.4 mg PO DAILY #7 cap
[2021-12-02 16:02] VITALS: BP 148/78; PULSE 70; O2SAT 97
[2021-12-02] MEDS ORDERED: Sodium Chloride 0.9% 1000 ML 1,000 ML IV STA (16:32)
[2021-12-02] MEDS ORDERED: Zofran 4 MG/2 ML VIAL IV ONE (16:32)
[2021-12-02] MEDS ORDERED: Hydromorphone 1 mg/ml Injection IV ONE (16:32)
[2021-12-02 16:51] LABS: Absolute Neutrophil Ct (ANC) 7.01 x10^3/uL (1.4-6.9); Basophil (Absolute #) 0.03 x10^3/uL (0-0.4); Hematocrit 43.3 % (42-50); Hemoglobin 14.4 g/dL (12.5-18.0); Lymphocyte (Absolute #) 1.77 x10^3/uL (1.0-4.6); Lymphocytes % 17.6 % (24.0-44.0); Mean Cell Volume 91.9 fL (78-100); Mean Corpuscular Hemoglobin 30.6 pg (26-32); Mean Corpuscular Hgb Concent. 33.3 g/dL (32-36); Mean Platelet Volume 9.8 fL (7.5-11.0); Monocyte (Absolute #) 1.11 x10^3/uL (0.0-1.3); Neutrophil % 69.6 % (36.0-66.0); Platelet Count 230 x10^3/uL (150-450); Red Blood Count 4.71 x10^6/uL (4.1-5.6); Red Cell Distribution Width 13.1 % (11.5-14.0); White Blood Count 10.1 x10^3/uL (4.0-10.5)
[2021-12-02] MEDS ORDERED: Zofran 4 MG/2 ML VIAL ONE (17:02)
[2021-12-02] MEDS ORDERED: Sodium Chloride 0.9% 1000 ML 1,000 ML ONE (17:02)
[2021-12-02] MEDS ORDERED: Hydromorphone 1 mg/ml Injection ONE (17:02)
[2021-12-02 17:05] LABS: ALBUMIN 4.2 g/dL (3.5-5.0); ALKALINE PHOSPHATASE 63 U/L (38-126); AMYLASE 75 U/L (30-110); ANION GAP 11.1 MEQ/L (5-15); BLOOD UREA NITROGEN 18 mg/dL (9-20); CHLORIDE 104 mmol/L (98-107); Calcium 9.1 mg/dL (8.4-10.2); Carbon Dioxide 29 mmol/L (22-30); Creatinine 1 1.19 mg/dL (0.66-1.25); EST GLOMERULAR FILTRATION RATE > 60.0 ML/MIN; Glucose 102 mg/dL (74-106); LIPASE 119 U/L (23-300); Potassium 3.9 mmol/L (3.5-5.1); SGOT/AST 30 U/L (17-59); SGPT/ALT 27 U/L (0-50); SODIUM 140 mmol/L (137-145); Total Protein 7.6 g/dL (6.3-8.2)
[2021-12-02 17:37] LABS: Mucus SLIGHT /HPF (NEGATIVE); WBC 0-2 /HPF (0-5)
[2021-12-02 17:42] LABS: Appearance CLEAR (CLEAR); Bilirubin NEGATIVE (NEGATIVE); Dipstick done @ ? MAIN LAB; Glucose NEGATIVE (NEGATIVE); Ketones NEGATIVE (NEGATIVE); Nitrite NEGATIVE (NEGATIVE); Protein,Urine Dip NEGATIVE (Negative); RBC SMALL Ery/ul (0-5); Specific Gravity 1.025 (1.005-1.025); Urobilinogen 1 mg/dL (0-1)
[2021-12-02 17:43] LABS: Urine Cultured Indicated? ORDERED SEPARATELY
--- NOTE | 2021-12-02 18:15 | XRAY ---
Indication: Left lower quadrant pain and hematuria. Multiple contiguous axial images obtained through the abdomen and pelvis without contrast using renal stone protocol. Comparison: None Lung bases demonstrates mild bibasilar subsegmental atelectasis/scarring. No infiltrate or effusion. Heart not enlarged. Small hiatal hernia. There is a 5-6 mm distal left ureter calculus approximately 3 cm proximal to the UVJ. Proximal left ureter is prominent up to 1 cm diameter along with mild hydronephrosis consistent with partial obstructive uropathy. Left kidney demonstrates 4 additional punctate calculi. Noncontrasted stomach and bowel loops appear nonobstructed with normal appendix. Minimal scattered colonic diverticulosis. No free fluid/air. A few tiny hepatic/splenic calcified granulomas. Remaining liver, gallbladder, pancreas, spleen, adrenal glands, right kidney, right ureter, bladder, and aorta are unremarkable for noncontrast exam. Osseous structures intact with mild injected changes throughout the thoracolumbar spine. Impression: 1. 5-6 mm distal left ureter calculus producing obstructive uropathy as detailed. Additional left renal micro-calculi. 2. Incidental colonic diverticulosis, small moderate hernia, degenerative spondylosis, and old granulomatous disease.
[2021-12-02] MEDS ORDERED: TORAdol 30 mg Injection IV ONE (18:22)
[2021-12-02] MEDS ORDERED: Flomax 0.4 MG PO ONE (18:22)
[2021-12-02] MEDS ORDERED: TORAdol 30 mg Injection ONE (18:25)
[2021-12-02] MEDS ORDERED: Flomax 0.4 MG ONE (18:25)
== END 2021-12-02 19:00 | disposition home or self-care (01) ==
LOC: ED 15:48
DX: N13.2 Hydronephrosis with renal and ureteral calculous obstruction (principal); R10.32 Left lower quadrant pain; Z79.891 Long term (current) use of opiate analgesic
CPT/HCPCS: 36000; 36415; 74176; 80053; 81015; 82150; 83605; 83690; 85025; 96360; 96374; 96375; 99284; J1170; J1885; J2405; A9270-GY

== ENCOUNTER 2023-03-30 06:35 | Day surgery (SDC) | payer BC ==
[2023-03-30] MEDS ORDERED: Lactated Ringers 1,000 ML IV SCH (07:00)
[2023-03-30 07:01] VITALS: RESP 16
[2023-03-30] MEDS ORDERED: DIPRIVAN 200 MG/20 ML IV ONE ×2 (07:51→08:09)
[2023-03-30] MEDS ORDERED: Xylocaine-Mpf 2% 5 Ml Vial ONE (07:51)
[2023-03-30] MEDS ORDERED: Versed 2 MG/2 ML Injection ONE (08:03)
[2023-03-30 08:54] VITALS: TEMP 98.6
--- NOTE | 2023-03-30 08:57 | OP ---
SURGERY DATE/TIME: 03/30/2023 0759 PREOPERATIVE DIAGNOSIS: Positive Cologuard test. POSTOPERATIVE DIAGNOSES: 1) Colon polyps in the sigmoid and rectosigmoid area. 2) Sigmoid diverticulosis. 3) Large internal and external hemorrhoids. PROCEDURE: Colonoscopy with hot snare polypectomy. SURGEON: Dr. Kruse. ANESTHESIA: Medications given by anesthesia department. HISTORY: The patient is a 63-year-old white male presenting now with a positive Cologuard. He reports that he has never had a colonoscopy previously. The patient does have trouble with hemorrhoids. The patient is felt to need to have endoscopic evaluation for his positive Cologuard test at this time. He was appraised of the risks of the procedure including the risk of perforation, phlebitis, untoward reaction to medication, bleeding and missed lesions. The patient verbalized his understanding and desired to have the procedure performed. DESCRIPTION OF PROCEDURE: The patient was given the medications by the anesthesia department. He had continuous pulse oximetry, ECG monitoring and intermittent blood pressure monitoring during the examination. A digital rectal examination was performed and revealed large external and internal hemorrhoids. The flexible Olympus pediatric colonoscope was used to intubate the rectum. A view of the colon was developed sequentially to the cecum. Upon insertion and withdrawal was noted a fairly large amount of liquid stool which was suctioned mostly clear. We encountered approximately 1.5 cm polyp in the sigmoid colon this is removed using polypectomy snare and retrieved for pathologic evaluation. There were two other polyps that were sitting side by side in the rectosigmoid area. We were able to remove these with a hot polypectomy snare as well and also retrieved for pathologic evaluation. No other mucosal lesions were encountered. The scope was removed from the patient who tolerated the procedure well and was sent back to OP recovery in good condition. The prep was noted to be fair to good.
[2023-03-30 09:08] VITALS: BP 127/78; PULSE 72; O2SAT 97
== END 2023-03-30 09:16 | disposition home or self-care (01) ==
LOC: SDC 06:35
PROVIDERS: ATTEND Family Medicine
DX: D12.7 Benign neoplasm of rectosigmoid junction (principal); R19.5 Other fecal abnormalities; K57.30 Diverticulosis of large intestine without perforation or abscess without bleeding; K64.4 Residual hemorrhoidal skin tags; K64.8 Other hemorrhoids
CPT/HCPCS: J2250; J2704